=== PATIENT | male | born 1960 | race Caucasian/White ===

== ENCOUNTER 2018-05-30 11:09 | Outpatient (CLI) | payer OTHER ==
--- NOTE | 2018-05-30 13:29 | RAD ---
CERVICAL SPINE SERIES 3 VIEWS: Date: 05/30/18 HISTORY: Neck pain, disability evaluation. FINDINGS: The vertebral bodies are normal in height. There is some mild to moderate disc narrowing at C3-4 and C4-5, more pronounced disc narrowing at C5-6 and C6-7. No soft tissue swelling. There are mild degene rative facet changes seen. IMPRESSION: Moderate arthritic changes of the spine. POS: [facility]
--- NOTE | 2018-05-30 13:41 | RAD ---
LUMBAR SPINE SERIES THREE VIEWS: History: Back pain. FINDINGS: The vertebral bodies are normal in height. Severe disc narrowing is seen at L5-S1. There is mild to m oderate disc narrowing at L4-5 and mild disc narrowing at L3-4. Degenerative facet changes are presen t. Pedicles are intact. IMPRESSION: Moderate osteoarthritic changes of the lower lumbar spine. POS: [facility]
--- NOTE | 2018-05-30 13:41 | RAD ---
TWO TO THREE VIEW RIGHT HIP SERIES: 05/30/18 INDICATION: Right hip pain. FINDINGS: There is end-stage osteoarthritis with obliteration of joint space, subchondral sclerosis and cyst fo rmation. Prominent osteophytosis is present. No fracture or dislocation is seen. IMPRESSION: End-stage osteoarthritis of the right hip POS: [facility]
== END 2018-05-30 11:10 | disposition home or self-care (01) ==
LOC: NAV RAD 11:09
PROVIDERS: ATTEND Family Medicine
DX: M54.2 Cervicalgia (principal); M51.17 Intervertebral disc disorders with radiculopathy, lumbosacral region; M16.11 Unilateral primary osteoarthritis, right hip; M47.816 Spondylosis without myelopathy or radiculopathy, lumbar region; M47.812 Spondylosis without myelopathy or radiculopathy, cervical region
CPT/HCPCS: 72040; 72100